=== PATIENT | female | born 1990 | race Caucasian/White ===

== ENCOUNTER 2022-10-05 10:35 | Inpatient (IN) | payer OTHER ==
[2022-10-05] MEDS ORDERED: ELECTROLYTE-148 SOLN 1,000 ML IV ONE (11:00)
[2022-10-05] MEDS ORDERED: CITRIC ACID/SODIUM CITRATE 30 ML UNIT-DOSE CUP PO ONE (11:30)
[2022-10-05] MEDS ORDERED: ELECTROLYTE-148 SOLN 1,000 ML IV SCH (11:30)
[2022-10-05 12:05] VITALS: BMI 33.3
[2022-10-05] MEDS ORDERED: ONDANSETRON 4 MG/2 ML VIAL IVPUSH PRN (13:57)
[2022-10-05] MEDS ORDERED: IBUPROFEN 600 MG TABLET (FP) PO PRN (13:57)
[2022-10-05] MEDS ORDERED: PHENYLEPHRINE HCL 10 MG/1 ML SINGLE DOSE VIAL ONE (14:10)
[2022-10-05] MEDS ORDERED: morphine SULFATE (PF) 1 MG/2 ML SYRINGE ONE (14:10)
[2022-10-05] MEDS ORDERED: OXYTOCIN 10 UNITS/ML VIAL ONE ×4 (15:10)
[2022-10-05] MEDS ORDERED: ceFAZolin SODIUM 1 GM VIAL ONE ×2 (15:10)
[2022-10-05] MEDS ORDERED: METHYLERGONOVINE MALEATE 0.2 MG/1 ML AMP IM PRN (16:00)
[2022-10-05] MEDS ORDERED: SENNOSIDES/DOCUSATE COMBO (SENNA PLUS) TABLET (UD) PO PRN (16:00)
[2022-10-05] MEDS ORDERED: OXYTOCIN 20 UNITS in 0.9% NS 20 UNIT/1,000 ML INFUS.BAG IV SCH (16:00)
[2022-10-05] MEDS: IBUPROFEN 800 MG/8 ML IJ IVPB PRN (17:50)
[2022-10-05] MEDS: SIMETHICONE 80 MG TAB.CHEW (FP) PO PRN (20:43)
[2022-10-05] MEDS: FERROUS SO4 325 MG TABLET (FP) PO SCH (21:04)
[2022-10-05] MEDS: ACETAMINOPHEN 325 MG TABLET (FP) PO PRN (22:33)
[2022-10-06] MEDS: IBUPROFEN 800 MG/8 ML IJ IVPB PRN ×2 (00:11→06:09)
[2022-10-06] MEDS ORDERED: oxyCODONE HCL 5 MG TABLET PO PRN ×2 (04:00)
[2022-10-06 09:27] LABS: BASO % 0.4 % (0-2.0); EOS % 1.4 % (0-4.5); HEMOGLOBIN 11.1 GM/dL (10.7-15.3); LYMPH % 13.2 % (8-40); MCH 28.7 pg (25.7-33.7); MCHC 33.7 g/dl (32.0-36.0); MEAN CELL VOLUME 85.1 fl (80-96); MEAN PLT VOLUME 8.6 fl (7.5-11.1); MONO % 8.5 % (3.8-10.2); NEUT % 76.5 % (42.8-82.8); PLATELET COUNT 189 10^3/uL (134-434); RBC 3.88 M/mm3 (3.60-5.2); RDW 13.7 % (11.6-15.6); WHITE BLOOD COUNT 8.2 K/mm3 (4.0-10.0)
[2022-10-06] MEDS: FERROUS SO4 325 MG TABLET (FP) PO SCH ×2 (10:31→21:38)
[2022-10-06] MEDS: PRENATAL VITAMINS W/ FOLIC ACID TABLET (FP) PO SCH (10:31)
[2022-10-06] MEDS: SIMETHICONE 80 MG TAB.CHEW (FP) PO PRN ×3 (11:30→22:20)
[2022-10-06] MEDS: ACETAMINOPHEN 325 MG TABLET (FP) PO PRN ×3 (11:31→23:59)
[2022-10-06] MEDS: IBUPROFEN 600 MG TABLET (FP) PO PRN ×2 (15:03→20:23)
[2022-10-06] MEDS ORDERED: BISACODYL 10 MG SUPP.RECT RC PRN (16:00)
[2022-10-07] MEDS: IBUPROFEN 600 MG TABLET (FP) PO PRN ×5 (04:13→23:58)
[2022-10-07] MEDS: SIMETHICONE 80 MG TAB.CHEW (FP) PO PRN ×4 (04:14→22:06)
[2022-10-07] MEDS: ACETAMINOPHEN 325 MG TABLET (FP) PO PRN ×2 (05:19→12:43)
[2022-10-07] MEDS: PRENATAL VITAMINS W/ FOLIC ACID TABLET (FP) PO SCH (09:44)
[2022-10-07] MEDS: FERROUS SO4 325 MG TABLET (FP) PO SCH ×2 (09:44→21:03)
[2022-10-08] MEDS: IBUPROFEN 600 MG TABLET (FP) PO PRN ×2 (04:33→08:22)
[2022-10-08] MEDS: SIMETHICONE 80 MG TAB.CHEW (FP) PO PRN ×2 (04:33→08:22)
[2022-10-08 08:28] VITALS: BP 121/75; PULSE 87; RESP 18; TEMP 97.8
[2022-10-08] MEDS: PRENATAL VITAMINS W/ FOLIC ACID TABLET (FP) PO SCH (09:40)
[2022-10-08] MEDS: FERROUS SO4 325 MG TABLET (FP) PO SCH (09:40)
== END 2022-10-08 11:50 | disposition home or self-care (01) | DRG 540 ==
LOC: JLDR 10:35 → J3W 16:50
PROVIDERS: ADMIT Obstetrics & Gynecology; ATTEND Obstetrics & Gynecology
PROC: 10D00Z1 Extraction of Products of Conception, Low, Open Approach (ICD-10-PCS; principal; 2022-10-05)
DX: O34.211 Maternal care for low transverse scar from previous cesarean delivery (principal); Z3A.39 39 weeks gestation of pregnancy; Z37.0 Single live birth
CPT/HCPCS: 36415; 85025; 88307-TC